=== PATIENT | female | born 1995 | race Caucasian/White ===

== ENCOUNTER 2016-08-10 03:10 | Emergency (ER) | payer SELFPAY ==
[2016-08-10 04:07] LABS: ABSOLUTE EOSINOPHILS # (AUTO) 0.1 10^3/uL (0.0-0.6); ABSOLUTE LYMPHOCYTES (AUTO) 1.7 10^3/uL (0.5-4.7); ABSOLUTE MONOCYTES (AUTO) 0.4 10^3/uL (0.1-1.4); ABSOLUTE NEUT (AUTO) 8.6 10^3/uL (1.7-8.2); BASOPHILS % (AUTO) 0.3 % (0-2); EOSINOPHILS % (AUTO) 0.9 % (0-6); HEMATOCRIT 33.8 % (36.0-47.0); HEMOGLOBIN 11.3 g/dL (12.0-15.5); HGB HCT DIFFERENCE 0.1; LYMPHOCYTES % (AUTO) 15.3 % (13-45); MEAN CORPUSCULAR HEMOGLOBIN 26.6 pg (27.0-33.4); MEAN CORPUSCULAR HGB CONC 33.3 g/dL (32.0-36.0); MEAN CORPUSCULAR VOLUME 80 fl (80-97); MONOCYTES % (AUTO) 4.1 % (3-13); RED BLOOD COUNT 4.24 10^6/uL (3.72-5.28); RED CELL DISTRIBUTION WIDTH 13.5 % (11.5-14.0); SEGMENTED NEUTROPHILS % (AUTO) 79.4 % (42-78); WHITE BLOOD COUNT 10.8 10^3/uL (4.0-10.5)
[2016-08-10 04:34] LABS: ALANINE AMINOTRANSFERASE 21 U/L (9-52); ALKALINE PHOSPHATASE 76 U/L (38-126); ANION GAP 11 (5-19); ASPARTATE AMINO TRANSFERASE 11 U/L (14-36); BILIRUBIN,TOTAL 0.2 mg/dL (0.2-1.3); BLOOD UREA NITROGEN 9 mg/dL (7-20); CALCIUM 8.5 mg/dL (8.4-10.2); CARBON DIOXIDE 20 mmol/L (22-30); CHLORIDE 107 mmol/L (98-107); CREATINE KINASE 37 U/L (30-135); GLUCOSE 87 mg/dL (75-110); SODIUM 138.3 mmol/L (137-145); TOTAL PROTEIN 5.9 g/dL (6.3-8.2)
[2016-08-10 04:46] LABS: CREATINE KINASE MB 0.26 ng/mL (<4.55); TROPONIN I < 0.012 ng/mL
[2016-08-10 05:04] LABS: APPEARANCE,URINE SLIGHTLY-CLOUDY; BILIRUBIN,URINE NEGATIVE (NEGATIVE); GLUCOSE, URINE NEGATIVE (NEGATIVE); KETONES,URINE NEGATIVE (NEGATIVE); LEUKOCYTE ESTERASE,URINE NEGATIVE (NEGATIVE); NITRITE,URINE NEGATIVE (NEGATIVE); PROTEIN,URINE 30 mg/dL (NEGATIVE); URINE SPECIFIC GRAVITY 1.027; UROBILINOGEN,URINE NEGATIVE mg/dL (<2.0)
[2016-08-10] MEDS ORDERED: DEXTROSE 5%-LACTATED RINGERS 1,000 ML IV ONE (06:43)
--- NOTE | 2016-08-10 06:49 | ER Document Report ---
ED Syncope and Near Syncope - General Mode of Arrival: Medic Information source: Patient TRAVEL OUTSIDE OF THE [place] IN LAST 30 DAYS: No <LEROY ISABEL - Last Filed: 08/10/16 06:54> <RENEE ANTUNEZ - Last Filed: 08/10/16 08:15> - General Chief Complaint: Near Syncope Stated Complaint: ABDOMINAL PAIN Time Seen by Provider: 08/10/16 06:32 Notes: Patient is a 20-year-old female that presents to the emergency department today with complaints of 2 syncopal episodes prior to arrival. Patient states she was sleeping, began feeling nauseated, went to the bathroom where she vomited and had diarrhea and then had two syncopal episodes. Patient states she began to feel hot, sweaty, pale, and dizzy while sitting on the toilet along with sharp stabbing abdominal pain. Patient states shortly after these symptoms began she had her first syncopal episode. Patient states her was getting her ready, dressing her to come to the emergency department and she syncopized again. Patient states she is , her last menstrual period was sometime in June, she is A1. According to patient's last ultrasound, she is approximately 17 weeks . Patient states she believes she has A+ blood type. Patient denies falling during the syncopal episodes. Patient denies any fevers. (LEROY ISABEL) - Related Data Allergies/Adverse Reactions: latex Allergy (Verified 08/10/16 05:47) Past Medical History - General Information source: Patient Last Menstrual Period: "june" - Social History Smoking Status: Never Smoker Cigarette use (# per day): No Frequency of alcohol use: None Drug Abuse: None Lives with: Family Family History: Reviewed & Not Pertinent - Past Medical History Cardiac Medical History: Reports: Hx Heart Murmur Pulmonary Medical History: Reports: Hx Asthma Past Surgical History: Reports: Hx Section - x1 - Immunizations Hx Diphtheria, Pertussis, Tetanus Vaccination: Yes <LEROY ISABEL - Last Filed: 08/10/16 06:54> Review of Systems - Review of Systems Constitutional: See HPI, Diaphoresis. denies: Fever EENT: No symptoms reported Cardiovascular: See HPI, Chest pain, Syncope - x2, Dizziness Respiratory: No symptoms reported Gastrointestinal: See HPI, Abdominal pain, Diarrhea, Nausea, Vomiting Genitourinary: No symptoms reported Female Genitourinary: No symptoms reported Musculoskeletal: No symptoms reported Skin: No symptoms reported Hematologic/Lymphatic: No symptoms reported Neurological/Psychological: No symptoms reported -: Yes All other systems reviewed and negative <LEROY ISABEL - Last Filed: 08/10/16 06:54> Physical Exam - General General appearance: Appears well, Alert In distress: None - HEENT Head: Normocephalic, Atraumatic Eyes: Normal Extraocular movements intact: Yes - Respiratory Respiratory status: No respiratory distress Chest status: Nontender Breath sounds: Normal - Cardiovascular Rhythm: Regular Heart sounds: Normal auscultation Murmur: No - Abdominal Inspection: Gravid female, Obese Distension: No distension Bowel sounds: Normal Tenderness: Nontender Organomegaly: No organomegaly - Extremities General upper extremity: Normal inspection, Normal ROM. No: Edema General lower extremity: Normal inspection, Normal ROM. No: Edema - Neurological Neuro grossly intact: Yes Cognition: Normal Orientation: AAOx4 Speech: Normal - Psychological Associated symptoms: Normal affect, Normal mood - Skin Skin Temperature: Warm Skin Moisture: Dry Skin Color: Normal <LEROY ISABEL - Last Filed: 08/10/16 06:54> Course - Laboratory Result Diagrams: 08/10/16 03:50 08/10/16 03:50 <LEROY ISABEL - Last Filed: 08/10/16 06:54> - Laboratory Result Diagrams: 08/10/16 03:50 08/10/16 03:50 - Diagnostic Test Radiology reviewed: Reports reviewed - Ultrasound shows a 17 week 1 day viable IUP with anterior placenta without presentation. No abnormalities. - EKG Interpretation by Me EKG shows normal: Sinus rhythm, [place], Intervals, QRS Complexes, ST-T Waves Rate: Normal - 80 Rhythm: NSR <RENEE ANTUNEZ - Last Filed: 08/10/16 08:15> - Vital Signs Vital signs: Temp Pulse Resp BP Pulse Ox 98.5 F 83 16 96/52 L 99 08/10/16 03:12 08/10/16 05:05 08/10/16 06:01 08/10/16 06:01 08/10/16 06:01 (LEROY ISABEL) (RENEE ANTUNEZ) - Laboratory Laboratory results interpreted by me: 08/10/16 08/10/1608/10/17 03:50 03:50 04:30 WBC 10.8 H Hgb 11.3 L Hct 33.8 L MCH 26.6 L Seg Neutrophils % 79.4 H Absolute Neutrophils 8.6 H Carbon Dioxide 20 L Creatinine 0.50 L AST 11 L Total Protein 5.9 L Albumin 3.0 L Beta HCG, Quant 09095.00 H Urine Protein 30 H (LEROY ISABEL) (RENEE ANTUNEZ) Discharge <LEROY ISABEL - Last Filed: 08/10/16 06:54> <RENEE ANTUNEZ - Last Filed: 08/10/16 08:15> - Discharge Clinical Impression: Nausea, vomiting and diarrhea, 17 week intrauterine , Vasovagal syncope Condition: Stable Disposition: HOME, SELF-CARE Additional Instructions: Gastroenteritis: You most likely have gastroenteritis. This is an irritation of the stomach and intestinal tract. It's usually caused by a virus, but can also be caused by bacteria, toxins that cause food poisoning, or excessive alcohol intake. Symptoms may include fever, painful abdominal cramps, nausea, vomiting , and diarrhea. Start with small amounts (two to six ounces) of clear liquids (soft drinks , herb teas, broth, etc). Try to take fluids frequently even if you are vomiting, to prevent dehydration. When liquids are being consumed successfully , advance to small amounts of bland food (mashed potato, toast) for 6 - 12 hours. Gastroenteritis rarely requires medication. It goes away by itself. Use good handwashing so you don't spread germs. Wash underwear in very hot water. If symptoms are severe, talk to the doctor. Call your physician if blood appears in your vomitus or stool, if vomiting lasts longer than 24 hours, if the abdominal pain worsens or becomes localized to one area, or if you develop high fever. Vasovagal Symptoms: Your symptoms seem to be due to a fall in blood pressure, caused by the interaction of your nervous system with your circulatory system. This can result in abnormally slow pulse rate, faintness, abnormal sensations, low blood pressure, difficulty with vision, or fainting (syncope). Vasovagal symptoms may be brought on by emotional distress, pain, dehydration, bleeding, or medication effects. Often, no cause can be identified. Your exam has revealed no signs of a serious problem. Usually, no further tests are required. However, if further workup has been recommended it's important that you follow up as instructed. Should you feel lightheaded or "about to faint," you should sit or lie down as quickly as possible. The episode will usually pass. Recurring symptoms will require further evaluation to determine the cause. Call the physician if you develop severe prolonged dizziness, headache, chest pain, shortness of breath, or other new symptoms. DRINK PLENTY OF FLUIDS TODAY. REST. FOLLOW UP WITH [facility] OR THE HEALTH DEPARTMENT IF NOT IMPROVING. RETURN TO THE EMERGENCY ROOM IF ANY NEW OR WORSENING SYMPTOMS. Scribe Attestation: 08/10/16 08:14 I personally performed the services described in the documentation, reviewed and edited the documentation which was dictated to the scribe in my presence, and it accurately records my words and actions. (RENEE ANTUNEZ) Scribe Documentation - Scribe Written by Arcelia:: Arcelia Solis, [id number] 08/10/16 acting as scribe for :: Lory <LEROY ISABEL - Last Filed: 08/10/16 06:54>
--- NOTE | 2016-08-10 08:08 | EKG REPORT ---
SEVERITY:- NORMAL ECG - SINUS RHYTHM : Confirmed by: Tay Rose MD 10-Aug-2016 08:08:16
[2016-08-10 09:03] VITALS: BP 104/56
== END 2016-08-10 08:55 | disposition home or self-care (01) ==
LOC: ER 03:10
DX: O21.9 Vomiting of pregnancy, unspecified (principal); R55 Syncope and collapse; R10.9 Unspecified abdominal pain; R19.7 Diarrhea, unspecified; Z3A.17 17 weeks gestation of pregnancy
CPT/HCPCS: 36415; 76805; 80053; 81001; 82550; 82553; 84484; 84702; 85025; 93005; 93010; 96365; 99285

== ENCOUNTER 2016-08-17 16:44 | Emergency (ER) | payer MEDICAID ==
[2016-08-17 17:01] VITALS: BP 107/52
[2016-08-17] MEDS ORDERED: ACETAMINOPHEN 325 MG TABLET PO ONE (17:20)
--- NOTE | 2016-08-17 17:20 | ER Document Report ---
ED Medical Screen (RME) - General Stated Complaint: CHEST AND ABDOMINAL PAIN Mode of Arrival: Ambulatory Information source: Patient Notes: 20-year-old female presents to ED for lower abdominal pain around to the back cramping with pressure for 2 almost 3 days upper chest pain due to her left side with movement for 3 days. States she's had nausea and vomiting her whole 3 times today. States she has pressure with urination. She is 18 weeks I have greeted and performed a rapid initial assessment of this patient. A comprehensive ED assessment and evaluation of the patient, analysis of test results and completion of medical decision making process will be conducted by an additional ED providers. TRAVEL OUTSIDE OF THE [place] IN LAST 30 DAYS: No - Related Data Allergies/Adverse Reactions: latex Allergy (Verified 08/17/16 17:14) Past Medical History - Past Medical History Cardiac Medical History: Reports: Hx Heart Murmur Pulmonary Medical History: Reports: Hx Asthma Past Surgical History: Reports: Hx Section - x1 - Immunizations Hx Diphtheria, Pertussis, Tetanus Vaccination: Yes Physical Exam - Vital signs Vitals: Temp Pulse Resp BP Pulse Ox 98.0 F 98 16 107/52 L 98 08/17/16 17:00 08/17/16 17:00 08/17/16 17:00 08/17/16 17:00 08/17/16 17:00 Course - Vital Signs Vital signs: Temp Pulse Resp BP Pulse Ox 98.0 F 98 16 107/52 L 98 08/17/16 17:00 08/17/16 17:00 08/17/16 17:00 08/17/16 17:00 08/17/16 17:00
[2016-08-17] MEDS ORDERED: DIPHENHYDRAMINE HCL 50 MG CAPSULE PO ONE (17:21)
[2016-08-17] MEDS ORDERED: METOCLOPRAMIDE HCL 10 MG TABLET PO ONE (17:21)
[2016-08-17 17:42] LABS: ABSOLUTE EOSINOPHILS # (AUTO) 0.1 10^3/uL (0.0-0.6); ABSOLUTE LYMPHOCYTES (AUTO) 1.7 10^3/uL (0.5-4.7); ABSOLUTE MONOCYTES (AUTO) 0.5 10^3/uL (0.1-1.4); ABSOLUTE NEUT (AUTO) 6.7 10^3/uL (1.7-8.2); BASOPHILS % (AUTO) 0.4 % (0-2); EOSINOPHILS % (AUTO) 1.3 % (0-6); HEMATOCRIT 32.7 % (36.0-47.0); HEMOGLOBIN 10.9 g/dL (12.0-15.5); LYMPHOCYTES % (AUTO) 19.2 % (13-45); MEAN CORPUSCULAR HEMOGLOBIN 26.8 pg (27.0-33.4); MEAN CORPUSCULAR HGB CONC 33.4 g/dL (32.0-36.0); MEAN CORPUSCULAR VOLUME 80 fl (80-97); MONOCYTES % (AUTO) 5.7 % (3-13); RED BLOOD COUNT 4.09 10^6/uL (3.72-5.28); RED CELL DISTRIBUTION WIDTH 13.4 % (11.5-14.0); SEGMENTED NEUTROPHILS % (AUTO) 73.4 % (42-78); WHITE BLOOD COUNT 9.1 10^3/uL (4.0-10.5)
[2016-08-17 17:47] LABS: APPEARANCE,URINE SLIGHTLY-CLOUDY; BILIRUBIN,URINE NEGATIVE (NEGATIVE); GLUCOSE, URINE NEGATIVE (NEGATIVE); KETONES,URINE TRACE mg/dL (NEGATIVE); LEUKOCYTE ESTERASE,URINE NEGATIVE (NEGATIVE); NITRITE,URINE NEGATIVE (NEGATIVE); PROTEIN,URINE NEGATIVE (NEGATIVE); URINE SPECIFIC GRAVITY 1.028; UROBILINOGEN,URINE NEGATIVE mg/dL (<2.0)
[2016-08-17 17:57] LABS: ALANINE AMINOTRANSFERASE 19 U/L (9-52); ALBUMIN 3.4 g/dL (3.5-5.0); ALKALINE PHOSPHATASE 69 U/L (38-126); ANION GAP 10 (5-19); ASPARTATE AMINO TRANSFERASE 13 U/L (14-36); BILIRUBIN,TOTAL 0.2 mg/dL (0.2-1.3); BLOOD UREA NITROGEN 7 mg/dL (7-20); CALCIUM 9.1 mg/dL (8.4-10.2); CARBON DIOXIDE 25 mmol/L (22-30); CHLORIDE 104 mmol/L (98-107); CREATININE RESULT 0.51 mg/dL (0.52-1.25); GLUCOSE 87 mg/dL (75-110); POTASSIUM 4.1 mmol/L (3.6-5.0); SODIUM 138.9 mmol/L (137-145)
--- NOTE | 2016-08-17 18:29 | ER Document Report ---
ED General - General Chief Complaint: Lower Abdominal Pain Stated Complaint: CHEST AND ABDOMINAL PAIN Time seen by provider: 18:00 Mode of Arrival: Ambulatory Information source: Patient Notes: 20-year-old female with 2 day history of multiple episodes of nausea and vomiting. She reports some subjective fever for the past 2 days but denies chills, earache, sore throat, headache, chest pain, or back pain. She reports a sensation of urinary urgency and pressure in her lower abdomen when she urinates. She denies vaginal bleeding. Patient has had several visits the emergency department with nausea vomiting and had an OB ultrasound last week that showed a 17 week 1 day IUP. She reports has not yet followed up with OB/ PASTE MAKER. She reports she's had difficulty with by mouth intake for the past 2 days because of vomiting. Physical Exam: General: Alert, appears well. HEENT: Normocephalic. Atraumatic. PERRLA. Extraocular movements intact. Oropharynx clear. Neck: Supple. Non-tender. Respiratory: No respiratory distress. Clear and equal breath sounds bilaterally. Cardiovascular: Regular rate and rhythm. Abdominal: Normal Inspection. Soft, non-tender. No distension. Normal Bowel Sounds. Gravid uterus consistent with reported dates. No guarding rebound rigidity Back: Non-tender. No deformity or step off. Extremities: Moves all four extremities. Upper extremities: Normal inspection. Non-tender. Normal color. Normal ROM. Normal temperature. Lower extremities: Normal inspection. Non-tender. No edema. Normal color. Normal ROM. Normal temperature. Neurological: Speech clear mentation normal Psychological: Normal affect. Normal Mood. Skin: Warm. Dry. Normal color. TRAVEL OUTSIDE OF THE [place] IN LAST 30 DAYS: No - Related Data Allergies/Adverse Reactions: latex Allergy (Verified 08/17/16 17:14) Past Medical History - General Information source: Patient - Social History Smoking Status: Never Smoker Chew tobacco use (# tins/day): No Family History: Hypertension Patient has suicidal ideation: No Patient has homicidal ideation: No - Past Medical History Cardiac Medical History: Reports: Hx Heart Murmur Pulmonary Medical History: Reports: Hx Asthma Renal/ Medical History: Denies: Hx Peritoneal Dialysis Past Surgical History: Reports: Hx Section - x1 - Immunizations Hx Diphtheria, Pertussis, Tetanus Vaccination: Yes Review of Systems - Review of Systems Constitutional: See HPI EENT: denies: Ear pain, Throat pain Cardiovascular: denies: Chest pain, Palpitations Respiratory: denies: Cough, Short of breath Gastrointestinal: See HPI Genitourinary: See HPI Female Genitourinary: Musculoskeletal: denies: Back pain Hematologic/Lymphatic: denies: Swollen glands Neurological/Psychological: denies: Weakness Physical Exam - Vital signs Vitals: Temp Pulse Resp BP Pulse Ox 98.0 F 98 16 107/52 L 98 08/17/16 17:00 08/17/16 17:00 08/17/16 17:00 08/17/16 17:00 08/17/16 17:00 Course - Re-evaluation Re-evalutation: 08/17/16 18:26 Patient's urine is clear. She has benign abdominal exam and that she is less than 20 weeks does not warrant admission for Ray surveillance. She will be prescribed Zofran for nausea and vomiting provided with MARKETING UNDERWRITER referral as her symptoms seemed most consistent with vomiting related to - Vital Signs Vital signs: Temp Pulse Resp BP Pulse Ox 98.0 F 98 16 107/52 L 98 08/17/16 17:00 08/17/16 17:00 08/17/16 17:00 08/17/16 17:00 08/17/16 17:00 - Laboratory Result Diagrams: 08/17/16 17:25 08/17/16 17:25 Laboratory results interpreted by me: 08/17/16 08/17/16 08/17/16 17:25 17:25 17:25 Hgb 10.9 L Hct 32.7 L MCH 26.8 L Creatinine 0.51 L AST 13 L Albumin 3.4 L Urine Ketones TRACE H Discharge - Discharge Clinical Impression: Second trimester Nausea & vomiting Qualifiers: Vomiting type: unspecified Vomiting Intractability: non-intractable Qualified Code(s): R11.2 - Nausea with vomiting, unspecified Condition: Stable Disposition: HOME, SELF-CARE Additional Instructions: You are . care is best started as early in as possible. If you're unsure about continuing this , you should discuss this with your physician or with engine dispatcher at [facility]. You should take only medications approved by your physician. Acetaminophen can safely be taken for minor pains. As a rule, medication for chronic conditions such as asthma or seizures can safely be continued. You should discuss with the physician every medicine you take. Any regular exercise program can be continued. Talk to your physician, however, before engaging in competitive or demanding sports. Alcohol, smoking, and "street drugs" are dangerous to your baby. Cocaine is especially dangerous. Don't use any illicit drugs! Prescriptions: Ondansetron [Zofran Odt 4 mg Tablet] 1 tab PO Q6H PRN #20 tab.rapdis PRN Reason: For Nausea/Vomiting Referrals: JARRED MATA MD [ACTIVE STAFF] - Follow up in 1 week
== END 2016-08-17 18:44 | disposition home or self-care (01) ==
LOC: ER 16:44
DX: O21.9 Vomiting of pregnancy, unspecified (principal); O26.892 Other specified pregnancy related conditions, second trimester; J45.909 Unspecified asthma, uncomplicated; O99.512 Diseases of the respiratory system complicating pregnancy, second trimester; R39.15 Urgency of urination; Z3A.00 Weeks of gestation of pregnancy not specified; Z91.040 Latex allergy status
CPT/HCPCS: 99284; 36415; 85025; 80053; 81001; J3490 ×3

== ENCOUNTER 2016-09-01 18:16 | Emergency (ER) | payer MEDICAID ==
--- NOTE | 2016-09-01 18:37 | ER Document Report ---
ED Medical Screen (RME) - General Stated Complaint: BACK PAIN, SHORTNESS OF BREATH Notes: 20 yo female 22 wks. Due date 01/21/17. c/o low back pain and lower abd and shortness of breath x 1 day. mucous discharge yesterday. abdominal contractions. discussed with Ludy, charge nurse L&D. pt by due date is 19w5d, wont see pt in L&D TRAVEL OUTSIDE OF THE [place] IN LAST 30 DAYS: No - Related Data Allergies/Adverse Reactions: latex Allergy (Verified 08/17/16 17:14) Past Medical History - Past Medical History Cardiac Medical History: Reports: Hx Heart Murmur Pulmonary Medical History: Reports: Hx Asthma Renal/ Medical History: Denies: Hx Peritoneal Dialysis Past Surgical History: Reports: Hx Section - x1 - Immunizations Hx Diphtheria, Pertussis, Tetanus Vaccination: Yes Physical Exam - Vital signs Vitals: Temp Pulse Resp BP Pulse Ox 98.0 F 108 H 20 104/66 98 09/01/16 18:19 09/01/16 18:19 09/01/16 18:19 09/01/16 18:19 09/01/16 18:19 Course - Vital Signs Vital signs: Temp Pulse Resp BP Pulse Ox 98.0 F 108 H 20 104/66 98 09/01/16 18:19 09/01/16 18:19 09/01/16 18:19 09/01/16 18:19 09/01/16 18:19
[2016-09-01 19:29] LABS: APPEARANCE,URINE CLOUDY; BILIRUBIN,URINE NEGATIVE (NEGATIVE); GLUCOSE, URINE NEGATIVE (NEGATIVE); KETONES,URINE NEGATIVE (NEGATIVE); LEUKOCYTE ESTERASE,URINE NEGATIVE (NEGATIVE); NITRITE,URINE NEGATIVE (NEGATIVE); PROTEIN,URINE 30 mg/dL (NEGATIVE); URINE SPECIFIC GRAVITY 1.024; UROBILINOGEN,URINE NEGATIVE mg/dL (<2.0)
--- NOTE | 2016-09-01 22:43 | ER Document Report ---
ED General - General Chief Complaint: Back Pain Stated Complaint: BACK PAIN, SHORTNESS OF BREATH Notes: Patient is a 20-year-old female currently 20 weeks who presents with 2 days of diffuse intermittent cramping abdominal pain. Nothing improves or worsens the pain. States she's had similar symptoms during prior pregnancies around the same gestational age. She has not seen her primary TRASH COLLECTOR regarding today's concerns. She denies any dysuria, vaginal bleeding or discharge. States the pain is worsened when the child moves around in the uterus. No abdominal trauma. She is not have any fever, nausea, vomiting or diarrhea. TRAVEL OUTSIDE OF THE [place] IN LAST 30 DAYS: No - Related Data Allergies/Adverse Reactions: latex Allergy (Verified 09/01/16 18:32) Past Medical History - General Information source: Patient - Social History Smoking Status: Never Smoker Chew tobacco use (# tins/day): No Frequency of alcohol use: None Drug Abuse: None Lives with: Spouse/Significant other Family History: Hypertension Patient has suicidal ideation: No Patient has homicidal ideation: No - Past Medical History Cardiac Medical History: Reports: Hx Heart Murmur Pulmonary Medical History: Reports: Hx Asthma Renal/ Medical History: Denies: Hx Peritoneal Dialysis Past Surgical History: Reports: Hx Section - x1 - Immunizations Hx Diphtheria, Pertussis, Tetanus Vaccination: Yes Review of Systems - Review of Systems Notes: Constitutional: Negative for fever. HENT: Negative for sore throat. Eyes: Negative for visual changes. Cardiovascular: Negative for chest pain. Respiratory: Negative for shortness of breath. Gastrointestinal: Positive for abdominal pain, negative for vomiting or diarrhea. Genitourinary: Negative for dysuria. Musculoskeletal: Negative for back pain. Skin: Negative for rash. Neurological: Negative for headaches, weakness or numbness. 10 point ROS negative except as marked above and in HPI. Physical Exam - Vital signs Vitals: Temp Pulse Resp BP Pulse Ox 98.0 F 108 H 20 104/66 98 09/01/16 18:19 09/01/16 18:19 09/01/16 18:19 09/01/16 18:19 09/01/16 18:19 Interpretation: Tachycardic Notes: PHYSICAL EXAMINATION: GENERAL: Well-appearing, well-nourished and in no acute distress. HEAD: Atraumatic, normocephalic. EYES: Pupils equal round and reactive to light, extraocular movements intact, sclera anicteric, conjunctiva are normal. ENT: nares patent, oropharynx clear without exudates. Moist mucous membranes. NECK: Normal range of motion, supple without lymphadenopathy LUNGS: Breath sounds clear to auscultation bilaterally and equal. No wheezes rales or rhonchi. HEART: Regular rate and rhythm without murmurs ABDOMEN: Gravid uterus. Soft, nontender, normoactive bowel sounds. No guarding , no rebound. No masses appreciated. EXTREMITIES: Normal range of motion, no pitting or edema. No cyanosis. NEUROLOGICAL: No focal neurological deficits. Moves all extremities spontaneously and on command. PSYCH: Normal mood, normal affect. SKIN: Warm, Dry, normal turgor, no rashes or lesions noted. Course - Re-evaluation Re-evalutation: 09/01/16 22:41 Patient is currently and presenting with lower abdominal pain. No vaginal bleeding or discharge. Bedside ultrasound shows a viable intrauterine , appropriate cardiac activity and active movement. Patient denies any dysuria and urinalysis is not consistent with an acute urinary tract infection. The patient does not have any focal right lower quadrant tenderness, rebound or guarding to suggest acute appendicitis. No right upper quadrant tenderness to suggest cholestasis of or an acute cholecystitis. Patient has tolerated oral intake here in the emergency department without difficulty. Vitals are within normal limits. At this time will discharge with return precautions and follow-up recommendations. Verbal discharge instructions given a the bedside and opportunity for questions given. Medication warnings reviewed. Patient is in agreement with this plan and has verbalized understanding of return precautions and the need for primary care follow-up in the next 24-72 hours. - Vital Signs Vital signs: Temp Pulse Resp BP Pulse Ox 98.2 F 85 18 98/68 L 99 09/01/16 22:54 09/01/16 22:54 09/01/16 22:54 09/01/16 22:54 09/01/16 22:54 - Laboratory Laboratory results interpreted by me: 09/01/16 09/01/16 18:40 18:40 Beta HCG, Quant 20984.00 H Urine Protein 30 H Discharge - Discharge Clinical Impression: Abdominal pain during Qualifiers: Trimester: second trimester Qualified Code(s): O26.892 - Other specified related conditions, second trimester Condition: Good Disposition: HOME, SELF-CARE Additional Instructions: You were seen for pain during your in the abdomen. The exact cause of your pain is unclear at this time but could be related to your growing baby. Your ultrasound here today shows that your baby is doing fine. However, you need to follow up with your TRASH COLLECTOR and primary care doctor at your earliest ability preferably within the next 1-2 days regarding today's emergency room visit. Return immediately if you have worsening pain, persistent vomiting, he began to have vaginal bleeding, pass out, have a fever of greater than 100.4F, or have any other symptoms that are worrisome to you. Referrals: SULEMA LOZA MD [Primary Care Provider] - Follow up as needed
[2016-09-01 22:55] VITALS: BP 98/68
== END 2016-09-01 22:50 | disposition home or self-care (01) ==
LOC: ER 18:16
DX: O26.892 Other specified pregnancy related conditions, second trimester (principal); R10.9 Unspecified abdominal pain; M54.9 Dorsalgia, unspecified; R06.02 Shortness of breath; Z3A.20 20 weeks gestation of pregnancy
CPT/HCPCS: 36415; 81001; 84702; 99283